=== PATIENT | female | born 1970 | race Caucasian/White ===

== ENCOUNTER 2024-06-10 09:08 | Day surgery (SDC) | payer OTHER ==
[~2024-06-10] VITALS: Ht 167.6 cm; Wt 58.8 kg
[~2024-06-10 09:08] MED LIST: AMITRIPTYLINE H25 M1 PO; ATIVAN 0.50.5 MG/TAB PO; CELEXA40 MG PO; COPAXONE20 MG/ML MR; FLEXERIL 1010 MG/TAB PO; FLOVENT DI50 MCG/Act IH; IMITREX100 MG PO; KEPPRA 500MG500 MG PO; LR 1,000 ML IV SCH; NEURONTIN300 MG/CAP PO; NORCO 325 MG-7.1 TAB PO; NUVIGIL150 MG PO; Ondansetron 4 MG/2 ML VIAL IV PRN; PROAIR HFA0.09 MG/AC IH; PROTONIX 40MG T40 MG PO; TOPROL XL 25MG25 MG PO
[2024-06-10 10:46] VITALS: BP 159/70; PULSE 62; TEMP 97
--- NOTE | 2024-06-10 10:56 | NUR ---
Pt ambulates with slow, slightly unsteady gait to bay 5. Admission assessments completed. VSS. 20G IV inserted into right hand, LR infusing without issues. Glasses removed. Pt reports her dentures are out and in her bag. Reports that stools are clear yellow. Allergies, medications, and pharmacy confirmed. brought to bedside. Call light within reach.
[2024-06-10] MEDS ORDERED: VTAMINC250TA (11:00)
[2024-06-10] MEDS ORDERED: HAIRSKINNAILS PO (11:01)
[2024-06-10] MEDS ORDERED: COLACE 100100 MG/CAP PO (11:01)
[2024-06-10] MEDS ORDERED: ZOFRAN 4MG T4 MG/TAB PO (11:02)
[2024-06-10] MEDS ORDERED: REQUIP 0.5MG0.5 MG PO (11:02)
[2024-06-10] MEDS ORDERED: VITAMIN D31000 I1 PO (11:02)
[2024-06-10] MEDS ORDERED: ZOLOFT 100MG100 MG PO (11:03)
[2024-06-10] MEDS ORDERED: GILENYA0.5 MG PO (11:03)
[2024-06-10] MEDS ORDERED: SINGULAIR 110 MG/TAB PO (11:03)
[2024-06-10] MEDS ORDERED: DESYREL 100MG100 MG PO (11:04)
[2024-06-10] MEDS ORDERED: LIORESAL 1010 MG/TAB PO (11:04)
[2024-06-10] MEDS ORDERED: Lidocaine PF 2% (20 MG/ML) 5 ML VIAL ONE (12:11)
[2024-06-10] MEDS ORDERED: fentaNYL 50 MCG/ML 2 ML VIAL ONE (12:11)
[2024-06-10] MEDS ORDERED: Labetalol 100 MG/20 ML Multi-Dose VIAL ONE (12:23)
[2024-06-10 12:40] VITALS: BP 129/65; PULSE 70; TEMP 97.1
[2024-06-10 12:55] VITALS: BP 112/67; PULSE 68
[2024-06-10 13:10] VITALS: BP 135/66; PULSE 68
--- NOTE | 2024-06-10 13:15 | NUR ---
1240 RETURNS TO ROOM 5 PER CART. AWAKE, ALERT. RESP UNLABORED. AMBULATES TO RECLINER WITH STANDBY ASSIST. DENIES NAUSEA OR ABD PAIN. VITAL SIGNS OBTAINED. CALL LIGHT AT SIDE. IN ROOM 1255 TOLERATES PO PUDDING AND SODA WITHOUT NAUSEA. DISCHARGE INSTRUCTIONS REVIEWED. PATIENT VERBALIZES UNDERSTANDING. COPY PROVIDED IN DISCHARGE FOLDER [id number] DR. CAGLE HERE TO VISIT WITH PATIENT 1310 DRESSES SELF
== END 2024-06-10 13:15 | disposition home or self-care (01) ==
LOC: SDCO 09:08
DX: D12.0 Benign neoplasm of cecum (principal); D12.2 Benign neoplasm of ascending colon; K21.9 Gastro-esophageal reflux disease without esophagitis; R19.7 Diarrhea, unspecified; Z80.0 Family history of malignant neoplasm of digestive organs; Z87.891 Personal history of nicotine dependence; Z79.899 Other long term (current) drug therapy
CPT/HCPCS: J1920; J2704; J3010; J7120